=== PATIENT | female | born 1975 | race African-American/Black ===

== ENCOUNTER → 2016-08-31 | Outpatient (CLI) | payer OTHER ==
[~2016-08-31] MED LIST: ALBU1AER9 INH; MULTTAB58 PO
[2016-08-31 13:31] LABS: BASO ABS # 0.09 K/uL (0-0.2); COMPLETE YES; EOS % 5.8 %; HEMATOCRIT 39.6 % (37-47); LYMPH % 39.7 %; LYMPH ABS # 1.78 K/uL (1.2-3.4); MEAN CELL VOLUME 93.4 fL (80-100); MEAN CORPUSCULAR HEMOGLOBIN 31.6 pg (25-34); MEAN CORPUSCULAR HGB CONC 33.8 g/dl (32-36); MEAN PLATELET VOLUME 10.5 fL (7.4-10.4); MONO % 12.3 %; NEUT % 40.2 %; PLATELET COUNT 283 K/uL (130-400); RED BLOOD COUNT 4.24 M/uL (4.2-5.4); WHITE BLOOD COUNT 4.48 K/uL (4.8-10.8)
[2016-08-31 13:57] LABS: ALT/SGPT 27 U/L (12-78); BLOOD UREA NITROGEN 13 mg/dl (7-18); BUN/CREATININE RATIO 15.9 (10-20); CALCIUM 9.2 mg/dl (8.5-10.1); CARBON DIOXIDE 27 mmol/L (21-32); CHLORIDE 106 mmol/L (98-107); CREATININE 0.82 mg/dl (0.60-1.20); GLUCOSE 65 mg/dl (70-99); POTASSIUM 3.8 mmol/L (3.5-5.1); SODIUM 139 mmol/L (136-145)
[2016-08-31 14:00] LABS: ALB/GLOB RATIO 1.1 (0.9-2); ALKALINE PHOSPHATASE 43 U/L (45-117); AST/SGOT 22 U/L (15-37)
[2016-08-31 14:01] LABS: URINE PROTIEN/CREAT RATIO 0.3 (0-0.2); URINE TOTAL PROTEIN 39.3 mg/dl (0-11.9)
== END | disposition home or self-care (01) ==
LOC: C.LABBC 11:01
PROVIDERS: ATTEND Family Medicine
DX: N92.0 Excessive and frequent menstruation with regular cycle (principal); E22.1 Hyperprolactinemia; R80.9 Proteinuria, unspecified